=== PATIENT | male | born 2000 | race Caucasian/White ===

== ENCOUNTER 2023-10-20 11:18 | Outpatient (CLI) | payer SELFPAY | END 2023-10-20 23:59 | disposition short-term general hospital (02) | LOC: EMS 11:18 | DX: T40.5X1A Poisoning by cocaine, accidental (unintentional), initial encounter (principal); R56.9 Unspecified convulsions | CPT/HCPCS: A0425; A0429 ==

== ENCOUNTER 2024-02-13 10:49 | Outpatient (CLI) | payer SELFPAY | END 2024-02-13 23:59 | disposition short-term general hospital (02) | LOC: EMS 10:49 | DX: R56.9 Unspecified convulsions (principal) | CPT/HCPCS: A0425; A0429 ==